=== PATIENT | female | born 1965 | race Caucasian/White ===

== ENCOUNTER 2017-05-08 18:47 | Emergency (ER) | payer OTHER ==
[~2017-05-08] VITALS: Ht 172.7 cm; Wt 136.4 kg
[2017-05-08 19:11] VITALS: BP 149/78; PULSE 94; RESP 15; O2SAT 98
--- NOTE | 2017-05-08 19:22 | ED.REPORT ---
HPI-NVD Date of Service May 08, 2017 ED Provider: History of Present Illness: nausea since yesterday vomiting also, works at [employer]. last a1c was 6.1 in june. DM ususally controlled with diet . primary care is [facility], first appointment is 05/31. denies pain, feels bloated. Nursing Notes Stated Complaint: NAUSEA, VOMITING, BLOOD SURGAR 600/SENT FROM [facility] Chief Complaint: Female Abdominal Pain Nursing Notes Reviewed: Yes Allergies: Coded Allergies: oxycodone (Verified Allergy, Intermediate, hallucination, 05/08/17) hydrocodone (Verified Allergy, Unknown, hallucination, 05/08/17) pseudoephedrine (Verified Allergy, Unknown, anaphylactic, 05/08/17) promethazine (Verified Adverse Reaction, Intermediate, oversedation, ) General Time Seen by MD: 19:22 Chief Complaint Nausea, Vomiting Hx Obtained From: Patient Onset Occurred: Yesterday Symptom Duration: Since onset Past Medical History Past Medical History Reports: Asthma, Diabetes mellitus, Denies: Hypertension Past Surgical History bilateral hernia at , adhesisions lysis , breast lump, lap,, thyroid Reports: Appendectomy, Hysterectomy Smoking History Never Smoker Social History Alcohol Use: "Social" Drug Use: Denies drug use Occupation single lives with dog and cat, 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 New in [facility] 03/2017, moved from [place]. Ambulatory Status Independent Review of Systems Basic Review of Systems Eyes: Vision NL, No discharge Hematologic: No bleeding, No bruising Psychiatric: Normal thought content Physical Exam Initial Vital Signs Vital Signs (First) Date Time Temp Pulse Resp B/P Pulse Ox O2 Delivery O2 Flow Rate FiO2 05/08/17 19:11 94 15 149/78 98 Room Air Initial VS: Reviewed, Vital signs normal Head / Eyes: Atraumatic, Normocephalic, PERRL ENT: Mucous membranes moist, Conjunctiva normal, No scleral icterus Neck: Supple, Non-tender, Full range of motion Respiratory: Breath sounds normal, Clear to auscultation, No respiratory distress Cardiovascular: Regular rate & rhythm, Heart sounds normal, Intact distal pulses Back: No CVA tenderness Lymphatic: No lymphadenopathy Extremities: Vascular intact, Neuro intact, No swelling, No tenderness Skin: Warm, Dry, No cyanosis Neurologic: Alert, Oriented, Nonfocal Psychiatric: Mood/affect normal, Behavior normal, Normal thought content General/Constitutional: Awake, Alert, No acute distress, Well appearing, Well developed, Well hydrated Abdomen: Atraumatic, Soft, Non-tender Bowel Sounds / Distention: Positive: Bowel sounds hypoactive Respiratory / Chest: Atraumatic, Breath sounds NL, Breath sounds = bilat Cardiovascular: Heart rate NL, Regular rhythm, Heart sounds NL Interpretation & Diagnostics Interpretation & Diagnostics: EKG shows normal sinus rhythm with a rate of 82. Lab Results Interpretation Result Diagram: 05/08/17194205/08/171942 Test 05/08/17 19:43 05/08/17 20:29 White Blood Count 8.7th/mm3 (3.8-10.1) Red Blood Count 4.81mil/mm3 (3.90-5.20) Hemoglobin 14.5g/dL (12.0-15.6) Hematocrit 41.7% (35.0-46.0) Mean Corpuscular Volume 86.7fL (81-100) Mean Corpuscular Hemoglobin 30.1pg (27.0-35.0) Mean Corpuscular Hemoglobin Concent 34.8% (32.0-37.0) Red Cell Distribution Width 13.3% (12.3-15.4) Platelet Count 276bil/L (150-400) Neutrophils (%) (Auto) 55.9% (40-74) Lymphocytes (%) (Auto) 31.4% (14-46) Monocytes (%) (Auto) 8.6% (4-12) Eosinophils (%) (Auto) 3.0% (0-5) Basophils (%) (Auto) 0.8% (0-3) Sodium Level 135mEq/L (134-144) Potassium Level 4.1mEq/L (3.5-5.2) Chloride Level 95mEq/L (97-108) Carbon Dioxide Level 19mmol/L (18-29) Blood Urea Nitrogen 11mg/dL (6-24) Creatinine 0.78mg/dL (0.57-1.00) Estimat Glomerular Filtration Rate 112mL/min (>59) Glucose Level 380mg/dL (60-99) Lactic Acid Level 3.6mmol/L (0.4-2.0) Calcium Level 8.6mg/dL (8.5-10.1) Total Bilirubin 0.5mg/dL (0.0-1.2) Aspartate Amino Transf (AST/SGOT) 103U/L (0-50) Alanine Aminotransferase (ALT/SGPT) 123U/L (0-32) Alkaline Phosphatase 55U/L (25-150) Troponin T < 0.010ug/L (0.0-0.011) Total Protein 7.7g/dL (6.4-8.4) Albumin 4.3g/dL (3.4-5.0) X-Ray Chest Interpretation Chest Xray Interpretation: PROCEDURE: X-RAY CHEST, TWO VIEWS ([id number]) INDICATIONS: nausea and vomiting TECHNIQUE: 2 views of the chest were acquired. COMPARISON: None. FINDINGS: Surgical changes and devices: None. Lungs and pleura: No pleural effusions or pneumothorax. Lungs are clear. Mediastinum: Mediastinal contours are normal. Heart size is normal. Bones and chest wall: No suspicious bony abnormalities. Soft tissues appear unremarkable. IMPRESSION: No acute process. Dictated by: Casa Greenfield M.D. on 05/08/2017 at 20:06 Approved by: Casa Greenfield M.D. on 05/08/2017 at 20:07 Re-Eval/Medical Decision Med Decision/Clinical Course 52 year old female presents for increased bllod sugar with nausea and vomiting. Patient does not usually do anything to control diabetes other than diet. Checked her blood sugar today and it was almost 600. Took a metformin, went to Urgent care and sent here. Elevated lactic acid at 3.8. Normal CBC, mild elevation in liver enzymes, trop is negative. EKG is normal. Chest x-ray is normal . Urine is normal. Awaiting CT results. Care of patient turned over to Dr. Blanco Discharge & Departure Impression: Primary Impression: Uncontrolled diabetes mellitus Diabetes mellitus type: type 2 Disposition: Home EDSupervising Provider for APC: Ernesto Blanco MD copies to: Quintin Mcmanus MD, Sue ARNP May 08, 2017 19:22
[2017-05-08] MEDS ORDERED: Ondansetron 2 mg/mL 2 mL Inj IVPUSH ONE ×2 (19:35→20:15)
[2017-05-08] MEDS ORDERED: 0.9% Sodium Chloride 1,000 ML IV ONE ×2 (19:35→20:05)
[2017-05-08 19:49] LABS: BASOPHILS % (AUTO) 0.8 % (0-3); MONOCYTES % (AUTO) 8.6 % (4-12); Mean Corpuscular Hemoglobin 30.1 pg (27.0-35.0); Mean Corpuscular Volume 86.7 fL (81-100); NEUTROPHILS % (AUTO) 55.9 % (40-74); Platelet Count 276 bil/L (150-400)
--- NOTE | 2017-05-08 20:08 | DRSVH ---
PROCEDURE: X-RAY CHEST, TWO VIEWS ([id number]) INDICATIONS: nausea and vomiting TECHNIQUE: 2 views of the chest were acquired. COMPARISON: None. FINDINGS: Surgical changes and devices: None. Lungs and pleura: No pleural effusions or pneumothorax. Lungs are clear. Mediastinum: Mediastinal contours are normal. Heart size is normal. Bones and chest wall: No suspicious bony abnormalities. Soft tissues appear unremarkable. IMPRESSION: No acute process. Dictated by: Casa Greenfield M.D. on 05/08/2017 at 20:06 Approved by: Casa Greenfield M.D. on 05/08/2017 at 20:07
[2017-05-08 20:14] LABS: TROPONIN T < 0.010 ug/L (0.0-0.011)
[2017-05-08 20:57] LABS: Lipase 84 U/L (13-60)
[2017-05-08] MEDS ORDERED: MetoCLOpramide 5 mg/mL 2 mL Inj IM ONE (21:00)
[2017-05-08 21:09] LABS: APPEARANCE,URINE CLEAR (CLEAR,HAZY); COLOR,URINE YELLOW (YELLOW); OCCULT BLOOD,URINE MODERATE (NEGATIVE); PH,URINE 5.5 (5.0-8.0); UROBILINOGEN,URINE NORMAL (NORMAL)
--- NOTE | 2017-05-08 21:09 | DRSVH ---
PROCEDURE: CT ABDOMEN AND PELVIS WITH CONTRAST ([id number]) INDICATIONS: nausea,vomiting bloated TECHNIQUE: After the administration of intravenous contrast, 5 mm thick sections acquired from the diaphragm to the symphysis. 5 mm coronal and sagittal reformats were acquired. For radiation dose reduction, the following was used: automated exposure control, adjustment of mA and/or kV according to patient siz e. COMPARISON: None. FINDINGS: Image quality: Excellent. ABDOMEN: Lung bases: Lung bases are clear. Heart size is normal. Solid organs: Liver is enlarged and demonstrates diffusely decreased density, indicating fatty infil tration. Gallbladder is within normal limits. Biliary system is non dilated. Pancreas enhances norm ally. No adrenal nodules. Kidneys demonstrate normal size and enhancement, without hydronephrosis. Peritoneum and bowel: Bowel loops demonstrate normal wall thickness and caliber. No free fluid or a ir. Appendix not seen. No evidence of appendicitis. Nodes and vessels: No retroperitoneal or mesenteric adenopathy by size criteria. Aorta and inferior vena cava are normal in size. Miscellaneous: Small and large bowel containing umbilical hernia measuring 18 mm. No evidence of asso ciated bowel strangulation, nor obstruction. PELVIS: Genitourinary: Urinary bladder decompressed. Miscellaneous: No inguinal hernias or adenopathy. Bones: No suspicious bony lesions. No vertebral body compression fractures. IMPRESSION: 1. No evidence of acute process. 2. Bowel containing umbilical hernia with no evidence of associated bowel strangulation or obstructio n. 3. Appendix not seen. No evidence of appendicitis. 4. Hepatic steatosis. Dictated by: Casa Greenfield M.D. on 05/08/2017 at 21:06 Approved by: Casa Greenfield M.D. on 05/08/2017 at 21:08
[2017-05-08 21:15] VITALS: BP 123/62; PULSE 91; RESP 17; O2SAT 95
[2017-05-08] MEDS ORDERED: _Ondansetron ODT 4 mg Tablet PO PRN (22:40)
[2017-05-08 23:02] VITALS: BP 129/76; PULSE 75; RESP 17; O2SAT 95
[2017-05-08] MEDS ORDERED: ONDA8TAB10 PO (23:21)
== END 2017-05-08 23:28 | disposition home or self-care (01) ==
LOC: SED 18:47
DX: E11.65 Type 2 diabetes mellitus with hyperglycemia (principal); R11.0 Nausea; R74.0 Nonspecific elevation of levels of transaminase and lactic acid dehydrogenase [LDH]; R79.89 Other specified abnormal findings of blood chemistry; J45.909 Unspecified asthma, uncomplicated; Z88.1 Allergy status to other antibiotic agents; Z88.5 Allergy status to narcotic agent
CPT/HCPCS: 36415; 71020; 74177; 80053; 81000; 82150; 82948; 83605; 83690; 84484; 85025; 93005; 96372; 96374; 96376; 99285; J2405; J2765; J7030; Q9967